=== PATIENT | male | born 1950 ===

== ENCOUNTER 2018-06-16 07:27 | Outpatient (CLI) | payer OTHER | END 2018-06-16 07:40 | disposition home or self-care (01) | LOC: SONOGRAMA 07:27 | DX: R10.31 Right lower quadrant pain (principal) ==

== ENCOUNTER → 2019-12-28 | Outpatient (CLI) | payer OTHER | END | disposition home or self-care (01) | LOC: MAMO-SONO 07:45 → SONOGRAMA 08:03 | PROVIDERS: ATTEND Internal Medicine Cardiovascular Disease | DX: Q61.01 Congenital single renal cyst (principal); E11.9 Type 2 diabetes mellitus without complications ==